=== PATIENT | male | born 1970 | race Caucasian/White ===

== ENCOUNTER → 2021-02-12 | Outpatient (REF) | payer BC ==
[2021-02-13 13:53] LABS: HEPATITIS B CORE ANTIBODY IGM NEGATIVE (NEGATIVE); HEPATITIS B SURFACE ANTIGEN NEGATIVE (NEGATIVE); HEPATITIS C VIRUS ABY INDEX 0.1 INDEX (<0.8)
== END ==
LOC: M LAB REF 12:13
PROVIDERS: ATTEND Nurse Practitioner Adult Health
DX: R74.01 Elevation of levels of liver transaminase levels (principal)

== ENCOUNTER → 2021-03-14 | Outpatient (CLI) | payer BC ==
[2021-03-14 11:25] LABS: HEMATOCRIT 51.1 % (42.0-52.0); HEMOGLOBIN 17.6 g/dl (13.5-17.5); MEAN CORPUSCULAR HEMOGLOBIN 31.4 pg (27.0-33.0); MEAN CORPUSCULAR HGB CONC 34.4 g/dl (32.0-36.5); MEAN CORPUSCULAR VOLUME 91.3 fl (80.0-96.0); PLATELET COUNT, AUTOMATED 317 10^3/uL (150-450); WHITE BLOOD COUNT 9.5 10^3/uL (4.0-10.0)
[2021-03-14 12:23] LABS: BLOOD UREA NITROGEN 16 MG/DL (7-18); CALCIUM LEVEL 10.1 MG/DL (8.5-10.1); CARBON DIOXIDE LEVEL 26 MEQ/L (21-32); CHLORIDE LEVEL 109 MEQ/L (98-107); CREATININE FOR GFR 1.07 MG/DL (0.70-1.30); GLOMERULAR FILTRATION RATE > 60.0 (>56); GLUCOSE, FASTING 107 MG/DL (70-100); POTASSIUM SERUM 4.5 MEQ/L (3.5-5.1); SODIUM LEVEL 142 MEQ/L (136-145)
[2021-03-14 14:18] LABS: HEMOGLOBIN A1c 5.4 %
== END ==
LOC: M LAB 10:58
PROVIDERS: ATTEND Internal Medicine Cardiovascular Disease
DX: Z13.1 Encounter for screening for diabetes mellitus (principal); I20.0 Unstable angina

== ENCOUNTER → 2021-05-06 | Outpatient (REF) | payer BC | LOC: M LAB REF 16:15 | PROVIDERS: ATTEND Nurse Practitioner Adult Health | DX: R74.01 Elevation of levels of liver transaminase levels (principal) ==

== ENCOUNTER → 2023-03-12 | Outpatient (CLI) | payer BC | LOC: M ADAMS 15:07 | PROVIDERS: ATTEND Nurse Practitioner Adult Health | DX: R05.9 Cough, unspecified (principal) ==

== ENCOUNTER 2023-04-04 07:57 | Emergency (ER) | payer BC ==
[~2023-04-04] VITALS: Ht 180.3 cm; Wt 109.0 kg
[2023-04-04 07:57] VITALS: TEMP 97.3
[2023-04-04] MEDS ORDERED: ATEN25TA PO (08:18)
[2023-04-04] MEDS ORDERED: SUCR1TAB56 (08:21)
[2023-04-04] MEDS ORDERED: ROSU5TAB5 (08:21)
[2023-04-04] MEDS ORDERED: MONT10TA97 (08:21)
[2023-04-04] MEDS ORDERED: ESOM40CA35 (08:21)
[2023-04-04] MEDS ORDERED: ROPI0.5T33 (08:21)
[2023-04-04] MEDS ORDERED: ALBU8.5H (08:21)
[2023-04-04] MEDS ORDERED: FLUTISP (08:21)
[2023-04-04 08:54] LABS: BASO # 0.1 10^3/uL (0.0-0.2); BASO % 0.7 % (0.0-1.0); EOS # 0.4 10^3/uL (0.0-0.5); EOS % 4.6 % (0.0-3.0); HEMATOCRIT 46.3 % (42.0-52.0); HEMOGLOBIN 16.1 g/dl (13.5-17.5); LYMPH # 2.1 10^3/uL (1.5-5.0); LYMPH % 23.9 % (24.0-44.0); MEAN CORPUSCULAR HEMOGLOBIN 31.7 pg (27.0-33.0); MEAN CORPUSCULAR HGB CONC 34.8 g/dl (32.0-36.5); MEAN CORPUSCULAR VOLUME 91.1 fl (80.0-96.0); MONO # 0.7 10^3/uL (0.0-0.8); MONO % 7.8 % (2.0-8.0); NEUTROPHILS # 5.5 10^3/uL (1.5-8.5); NEUTROPHILS % 62.4 % (36.0-66.0); PLATELET COUNT, AUTOMATED 269 10^3/uL (150-450); RED BLOOD COUNT 5.08 10^6/uL (4.30-6.10); WHITE BLOOD COUNT 8.8 10^3/uL (4.0-10.0)
[2023-04-04 09:09] LABS: INR 1.12; PROTHROMBIN TIME 14.1 SECONDS (12.5-14.5)
[2023-04-04 09:10] LABS: PARTIAL THROMBOPLASTIN TIME 25.7 SECONDS (24.8-34.2)
[2023-04-04 09:21] LABS: CPK CREATINE PHOSPHOKINASE 103 U/L (46-171)
[2023-04-04 09:24] LABS: ALKALINE PHOSPHATASE 117 U/L (46-116); ALT/SGPT 63 U/L (7.0-40); AST/SGOT 40 U/L (<34); BILIRUBIN,DIRECT 0.1 MG/DL (<0.4); BILIRUBIN,TOTAL 0.5 MG/DL (0.3-1.2); BLOOD UREA NITROGEN 13 MG/DL (9-23); CALCIUM LEVEL 9.2 MG/DL (8.5-10.1); CARBON DIOXIDE LEVEL 24 MMOL/L (20-31); CHLORIDE LEVEL 110 MMOL/L (98-107); CK-MB VALUE MASS < 1.0 NG/ML (<3.6); FREE T4 1.01 NG/DL (0.89-1.76); GLOMERULAR FILTRATION RATE > 60.0 (>56); GLUCOSE, FASTING 128 MG/DL (60-100); MB/CK RELATIVE INDEX 0.97 (< OR =4); POTASSIUM SERUM 4.4 MMOL/L (3.5-5.1); SODIUM LEVEL 141 MMOL/L (136-145); THYROID STIMULATING HORMONE 1.992 uIU/ML (0.55-4.78); TOTAL PROTEIN 6.7 G/DL (5.7-8.2)
[2023-04-04] MEDS ORDERED: PANTOPRAZOLE 40MG VIAL IV ONE (09:25)
[2023-04-04] MEDS ORDERED: amLODIPine 5 MG TAB PO ONE (09:25)
[2023-04-04] MEDS ORDERED: ASPIRIN 81MG CHEW TABLET PO ONE (09:25)
[2023-04-04] MEDS ORDERED: MAALOX 30 ML SUSP *UDC PO ONE (09:25)
[2023-04-04] MEDS ORDERED: ISOVUE-370 76% 100ML VIAL As Ordered ONE ×2 (09:44→10:09)
[2023-04-04 10:11] LABS: CK-MB VALUE MASS < 1.0 NG/ML (<3.6)
[2023-04-04 10:12] LABS: CPK CREATINE PHOSPHOKINASE 96 U/L (46-171); MB/CK RELATIVE INDEX 1.04 (< OR =4)
[2023-04-04 11:00] VITALS: BP 160/89; O2SAT 97
[2023-04-04 11:01] VITALS: BP 160/89
== END 2023-04-04 11:37 | disposition home or self-care (01) ==
LOC: M ED 07:57
DX: R07.9 Chest pain, unspecified (principal); E78.5 Hyperlipidemia, unspecified; I10 Essential (primary) hypertension; K21.9 Gastro-esophageal reflux disease without esophagitis; F17.200 Nicotine dependence, unspecified, uncomplicated; Z88.1 Allergy status to other antibiotic agents; Z79.52 Long term (current) use of systemic steroids; Z79.899 Other long term (current) drug therapy; Z79.810 Long term (current) use of selective estrogen receptor modulators (SERMs)
CPT/HCPCS: 71275; 80048; 80076; 82550; 82553; 84439; 84443; 84484; 85025; 85610; 85730; 93005; 93041; 94760; 96374; 99285; C9113; Q9967

== ENCOUNTER → 2023-04-15 | Outpatient (CLI) | payer BC ==
[~2023-04-15] MED LIST: ALBU8.5H; ATEN25TA PO; ESOM40CA35; FLUTISP; MONT10TA97; ROPI0.5T33; ROSU5TAB5; SUCR1TAB56
== END ==
LOC: M RAD 06:54
PROVIDERS: ATTEND Nurse Practitioner Adult Health
DX: K76.0 Fatty (change of) liver, not elsewhere classified (principal)

== ENCOUNTER → 2023-10-14 | Outpatient (CLI) | payer BC ==
[~2023-10-14] MED LIST changes: +ADVI200T PO; +AMLO1TAB24 PO; +BUSP1TAB PO; +CITA20TA6 PO; +E-Z-GAS II EFFERVESCENT PACKET (SODIUM BICARB./CITRIC ACID/SIMETHICONE) As Ordered ONE; +E-Z-HD 98% w/w 340GM SUSP BTL As Ordered ONE; +E-Z-PAQUE 96% w/w SUSP 176GM BTL As Ordered ONE; +ECOT81TA5 PO; -ESOM40CA35; +ESOM40CA35 PO; +FLUO-290 PO; -MONT10TA97; +MONT10TA97 PO; -ROPI0.5T33; +ROPI0.5T33 PO; +ROSU5TAB40 PO; -ROSU5TAB5; -SUCR1TAB56; +SUCR1TAB56 PO
== END ==
LOC: M RAD 09:25
PROVIDERS: ATTEND Surgery
DX: K21.9 Gastro-esophageal reflux disease without esophagitis (principal); R19.7 Diarrhea, unspecified

== ENCOUNTER 2023-11-26 07:18 | Day surgery (SDC) | payer BC ==
[~2023-11-26] VITALS: Ht 180.3 cm; Wt 102.9 kg
[~2023-11-26 07:18] MED LIST changes: -E-Z-GAS II EFFERVESCENT PACKET (SODIUM BICARB./CITRIC ACID/SIMETHICONE) As Ordered ONE; -E-Z-HD 98% w/w 340GM SUSP BTL As Ordered ONE; -E-Z-PAQUE 96% w/w SUSP 176GM BTL As Ordered ONE; +FAMO40TA3 PO; +LIDOCAINE 2% 100MG/5ML SDV (FOR ANES.) As Ordered ONE; +MECL-136 PO; +fentaNYL 100 MCG/2 ML INJECTION As Ordered ONE; +propofoL 500 MG/50 ML VIAL As Ordered ONE
[2023-11-26] MEDS: NS 1,000 ML IV ONE (07:40)
[2023-11-26 09:07] VITALS: BP 113/77; O2SAT 97
== END 2023-11-26 09:20 | disposition home or self-care (01) ==
LOC: M OPP 07:18
PROVIDERS: ATTEND Surgery
DX: K63.89 Other specified diseases of intestine (principal); K44.9 Diaphragmatic hernia without obstruction or gangrene; K31.89 Other diseases of stomach and duodenum; K29.80 Duodenitis without bleeding; Z79.02 Long term (current) use of antithrombotics/antiplatelets; Z79.1 Long term (current) use of non-steroidal anti-inflammatories (NSAID); Z79.51 Long term (current) use of inhaled steroids; Z79.82 Long term (current) use of aspirin; Z79.899 Other long term (current) drug therapy; Z88.1 Allergy status to other antibiotic agents
CPT/HCPCS: 43239; 45380; 88305; J3010

== ENCOUNTER 2023-12-05 10:18 | Emergency (ER) | payer BC ==
[~2023-12-05] VITALS: Ht 180.3 cm; Wt 104.3 kg
[~2023-12-05 10:18] MED LIST changes: -LIDOCAINE 2% 100MG/5ML SDV (FOR ANES.) As Ordered ONE; -fentaNYL 100 MCG/2 ML INJECTION As Ordered ONE; -propofoL 500 MG/50 ML VIAL As Ordered ONE
[2023-12-05] MEDS ORDERED: NIRM1TAB14 (10:30)
[2023-12-05 12:28] VITALS: BP 143/81; TEMP 98.3; O2SAT 99
== END 2023-12-05 12:57 | disposition home or self-care (01) ==
LOC: M ED 10:18
DX: R00.1 Bradycardia, unspecified (principal); F41.9 Anxiety disorder, unspecified; K21.9 Gastro-esophageal reflux disease without esophagitis; E78.5 Hyperlipidemia, unspecified; J45.909 Unspecified asthma, uncomplicated; I10 Essential (primary) hypertension; Z88.1 Allergy status to other antibiotic agents; Z79.52 Long term (current) use of systemic steroids; Z79.82 Long term (current) use of aspirin; Z79.899 Other long term (current) drug therapy

== ENCOUNTER 2023-12-09 13:25 | Emergency (ER) | payer BC ==
[~2023-12-09] VITALS: Ht 180.3 cm; Wt 103.6 kg
[~2023-12-09 13:25] MED LIST changes: +NIRM1TAB14
[2023-12-09 14:31] LABS: BASO % 0.4 % (0.0-1.0); EOS # 0.2 10^3/uL (0.0-0.5); EOS % 2.2 % (0.0-3.0); HEMATOCRIT 47.8 % (42.0-52.0); HEMOGLOBIN 16.6 g/dl (13.5-17.5); LYMPH # 1.9 10^3/uL (1.5-5.0); LYMPH % 21.6 % (24.0-44.0); MEAN CORPUSCULAR HEMOGLOBIN 31.4 pg (27.0-33.0); MEAN CORPUSCULAR HGB CONC 34.7 g/dl (32.0-36.5); MEAN CORPUSCULAR VOLUME 90.5 fl (80.0-96.0); MONO # 0.9 10^3/uL (0.0-0.8); NEUTROPHILS # 5.8 10^3/uL (1.5-8.5); NEUTROPHILS % 65.2 % (36.0-66.0); PLATELET COUNT, AUTOMATED 296 10^3/uL (150-450); RED BLOOD COUNT 5.28 10^6/uL (4.30-6.10); WHITE BLOOD COUNT 8.9 10^3/uL (4.0-10.0)
[2023-12-09 14:53] LABS: LIPASE 36 U/L (12-53)
[2023-12-09 14:54] LABS: CPK CREATINE PHOSPHOKINASE 65 U/L (46-171)
[2023-12-09 14:55] LABS: ALBUMIN 4.2 G/DL (3.2-5.2); ALKALINE PHOSPHATASE 112 U/L (46-116); ALT/SGPT 52 U/L (7.0-40); AST/SGOT 21 U/L (<34); BILIRUBIN,DIRECT 0.1 MG/DL (<0.4); BILIRUBIN,TOTAL 0.3 MG/DL (0.3-1.2); BLOOD UREA NITROGEN 17 MG/DL (9-23); CALCIUM LEVEL 9.7 MG/DL (8.5-10.1); CARBON DIOXIDE LEVEL 25 MMOL/L (20-31); CHLORIDE LEVEL 107 MMOL/L (98-107); CK-MB VALUE MASS < 1.0 NG/ML (<3.6); CREATININE FOR GFR 0.86 MG/DL (0.70-1.30); GLOMERULAR FILTRATION RATE > 60.0 (>56); GLUCOSE, FASTING 116 MG/DL (60-100); MB/CK RELATIVE INDEX 1.53 (< OR =4); POTASSIUM SERUM 4.1 MMOL/L (3.5-5.1); SODIUM LEVEL 139 MMOL/L (136-145); TOTAL PROTEIN 7.4 G/DL (5.7-8.2)
[2023-12-09 15:30] VITALS: BP 125/88
[2023-12-09 15:40] VITALS: TEMP 97.4; O2SAT 98
== END 2023-12-09 15:50 | disposition home or self-care (01) ==
LOC: M ED 13:25
DX: U07.1 COVID-19 (principal); R53.81 Other malaise; K21.9 Gastro-esophageal reflux disease without esophagitis; I10 Essential (primary) hypertension; Z88.1 Allergy status to other antibiotic agents; Z79.52 Long term (current) use of systemic steroids; Z79.82 Long term (current) use of aspirin; Z79.899 Other long term (current) drug therapy

== ENCOUNTER 2023-12-13 20:46 | Emergency (ER) | payer BC ==
[~2023-12-13] VITALS: Ht 180.3 cm; Wt 104.7 kg
[2023-12-13 21:40] LABS: BASO # 0.1 10^3/uL (0.0-0.2); BASO % 0.6 % (0.0-1.0); EOS # 0.4 10^3/uL (0.0-0.5); HEMATOCRIT 45.2 % (42.0-52.0); HEMOGLOBIN 16.2 g/dl (13.5-17.5); LYMPH # 4.4 10^3/uL (1.5-5.0); LYMPH % 35.7 % (24.0-44.0); MEAN CORPUSCULAR HEMOGLOBIN 31.9 pg (27.0-33.0); MEAN CORPUSCULAR HGB CONC 35.8 g/dl (32.0-36.5); MONO % 8.5 % (2.0-8.0); NEUTROPHILS # 6.3 10^3/uL (1.5-8.5); NEUTROPHILS % 51.6 % (36.0-66.0); PLATELET COUNT, AUTOMATED 314 10^3/uL (150-450); RED BLOOD COUNT 5.08 10^6/uL (4.30-6.10); WHITE BLOOD COUNT 12.2 10^3/uL (4.0-10.0)
[2023-12-13 21:52] LABS: CK-MB VALUE MASS < 1.0 NG/ML (<3.6)
[2023-12-13 21:54] LABS: ALBUMIN 3.9 G/DL (3.2-5.2); ALKALINE PHOSPHATASE 111 U/L (46-116); ALT/SGPT 45 U/L (7.0-40); AST/SGOT 18 U/L (<34); BILIRUBIN,DIRECT < 0.1 MG/DL (<0.4); BILIRUBIN,TOTAL 0.3 MG/DL (0.3-1.2); BLOOD UREA NITROGEN 13 MG/DL (9-23); CALCIUM LEVEL 9.1 MG/DL (8.5-10.1); CARBON DIOXIDE LEVEL 22 MMOL/L (20-31); CHLORIDE LEVEL 112 MMOL/L (98-107); CREATININE FOR GFR 0.85 MG/DL (0.70-1.30); GLOMERULAR FILTRATION RATE > 60.0 (>56); GLUCOSE, FASTING 130 MG/DL (60-100); MAGNESIUM LEVEL 1.8 MG/DL (1.8-2.4); SODIUM LEVEL 142 MMOL/L (136-145)
[2023-12-13 22:00] LABS: PROCALCITONIN 0.09 ng/ml
[2023-12-13 22:03] LABS: CPK CREATINE PHOSPHOKINASE 68 U/L (46-171); MB/CK RELATIVE INDEX 1.47 (< OR =4)
[2023-12-13] MEDS ORDERED: ISOVUE-370 76% 100ML VIAL As Ordered ONE (22:42)
[2023-12-13] MEDS: NS 1,000 ML IV ONE (22:57)
[2023-12-14 00:52] VITALS: BP 155/97; TEMP 96.6; O2SAT 100
[2023-12-14] MEDS ORDERED: DOXY100T27 PO (01:03)
[2023-12-14] MEDS ORDERED: ZITHTAB PO (01:03)
[2023-12-14] MEDS ORDERED: DELS1LIQ3 PO (01:03)
[2023-12-14] MEDS ORDERED: PSEU30TA87 PO (01:03)
[2023-12-14] MEDS ORDERED: PRED20TA PO (01:03)
[2023-12-14] MEDS ORDERED: BACI1CAP4 PO (01:06)
[2023-12-14] MEDS ORDERED: PROBCAP14 PO (01:06)
[2023-12-14] MEDS ORDERED: PROBCAP2 PO (01:06)
== END 2023-12-14 01:31 | disposition home or self-care (01) ==
LOC: M ED 20:46
DX: J20.9 Acute bronchitis, unspecified (principal); J01.00 Acute maxillary sinusitis, unspecified; J45.909 Unspecified asthma, uncomplicated; R51.9 Headache, unspecified; K21.9 Gastro-esophageal reflux disease without esophagitis; F41.9 Anxiety disorder, unspecified; G25.81 Restless legs syndrome; Z88.1 Allergy status to other antibiotic agents; Z79.52 Long term (current) use of systemic steroids; Z79.82 Long term (current) use of aspirin; Z79.899 Other long term (current) drug therapy; Z79.2 Long term (current) use of antibiotics
CPT/HCPCS: 36415; 71046; 71275; 80048; 80076; 82550; 82553; 83735; 84145; 84484; 85025; 87486; 87581; 87633; 87798; 93005; 99284; Q9967

== ENCOUNTER → 2024-01-26 | Outpatient (REF) | payer BC ==
[~2024-01-26] MED LIST changes: +BACI1CAP4 PO; +DELS1LIQ3 PO; +DOXY100T27 PO; +PRED20TA PO; +PROBCAP14 PO; +PROBCAP2 PO; +PSEU30TA87 PO; +ZITHTAB PO
== END ==
LOC: M LAB REF 16:48
PROVIDERS: ATTEND Nurse Practitioner Adult Health
DX: M79.606 Pain in leg, unspecified (principal)

== ENCOUNTER → 2024-02-11 | Outpatient (CLI) | payer BC ==
[~2024-02-11] MED LIST changes: -ROSU5TAB40 PO; +ROSU5TAB49 PO
== END ==
LOC: M PLAIMG 09:05
PROVIDERS: ATTEND Nurse Practitioner Adult Health
DX: R51.9 Headache, unspecified (principal)

== ENCOUNTER → 2024-02-13 | Outpatient (CLI) | payer BC | LOC: M EKG 12:53 | PROVIDERS: ATTEND Registered Nurse | DX: R00.2 Palpitations (principal) ==

== ENCOUNTER → 2024-02-17 | Outpatient (CLI) | payer BC | LOC: M PLAIMG 13:38 | PROVIDERS: ATTEND Otolaryngology | DX: J32.0 Chronic maxillary sinusitis (principal) ==

== ENCOUNTER → 2024-04-07 | Outpatient (REF) | payer BC ==
[2024-04-07 19:13] LABS: ALBUMIN 4.5 G/DL (3.2-5.2); BLOOD UREA NITROGEN 18 MG/DL (9-23); CALCIUM LEVEL 9.8 MG/DL (8.5-10.1); CARBON DIOXIDE LEVEL 26 MMOL/L (20-31); CHLORIDE LEVEL 105 MMOL/L (98-107); CREATININE FOR GFR 1.09 MG/DL (0.70-1.30); GLOMERULAR FILTRATION RATE > 60.0 (>56); GLUCOSE, FASTING 68 MG/DL (60-100); MAGNESIUM LEVEL 1.8 MG/DL (1.8-2.4); PHOSPHORUS LEVEL 3.8 MG/DL (2.5-4.9); POTASSIUM SERUM 4.4 MMOL/L (3.5-5.1); SODIUM LEVEL 141 MMOL/L (136-145)
== END ==
LOC: M LABDRWAD 17:15
PROVIDERS: ATTEND Registered Nurse
DX: I10 Essential (primary) hypertension (principal)

== ENCOUNTER 2024-05-16 09:21 | Day surgery (SDC) | payer BC ==
[~2024-05-16] VITALS: Ht 180.3 cm; Wt 103.6 kg
[~2024-05-16 09:21] MED LIST changes: -ALBU8.5H; +ALBU8.5H INH; +SPIR-10 PO; +VALS1TAB66 PO
[2024-05-16] MEDS ORDERED: HYDROmorphone HCL 2MG/ML 1ML VIAL As Ordered ONE (10:36)
[2024-05-16] MEDS ORDERED: fentaNYL 100 MCG/2 ML INJECTION As Ordered ONE (10:37)
[2024-05-16] MEDS ORDERED: MIDAZOLAM INJ 2MG/2ML VIAL As Ordered ONE (10:37)
[2024-05-16] MEDS ORDERED: ROCURONIUM BROMIDE 50MG/5ML VIAL As Ordered ONE (10:41)
[2024-05-16] MEDS ORDERED: LIDOCAINE 2% 100MG/5ML SDV (FOR ANES.) As Ordered ONE (10:41)
[2024-05-16] MEDS ORDERED: ONDANSETRON 4MG 2ML VIAL As Ordered ONE (10:41)
[2024-05-16] MEDS ORDERED: propofoL 200 MG/20 ML VIAL As Ordered ONE (10:41)
[2024-05-16] MEDS ORDERED: SUGAMMADEX SODIUM 500 MG/5 ML VIAL (BRIDION) As Ordered ONE (10:41)
[2024-05-16] MEDS ORDERED: ACETAMINOPHEN 1000MG/100ML IV BAG As Ordered ONE (10:41)
[2024-05-16] MEDS: LR 1,000 ML IV SCH (10:44)
[2024-05-16 11:31] LABS: INR 0.94; PARTIAL THROMBOPLASTIN TIME 26.6 SECONDS (24.8-34.2); PROTHROMBIN TIME 12.8 SECONDS (12.5-14.5)
[2024-05-16] MEDS: METHYLENE BLUE 0.5% (5MG/ML) 10 ML AMP (PROVAYBLUE) As Ordered ONE (12:06)
[2024-05-16] MEDS: EPINEPHrine 1MG/ML INJ 30ML MD-VIAL As Ordered ONE (12:06)
[2024-05-16] MEDS: LIDOCAINE W/EPINEPHRINE 1% 20ML VIAL As Ordered ONE (12:07)
[2024-05-16] MEDS ORDERED: fentaNYL 100 MCG/2 ML INJECTION IV PRN (13:20)
[2024-05-16] MEDS ORDERED: NS (Normal Saline) 0.9% 1,000 ML IV SCH (13:20)
[2024-05-16] MEDS: PHENYLEPHRINE REG/STR 0.5% NASAL SPRAY 15 ML As Ordered ONE (13:37)
[2024-05-16] MEDS: oxyCODONE 5MG TAB PO PRN (13:50)
[2024-05-16] MEDS: HYDROMORPHONE HCL 0.5 MG/ 0.5 ML SYRINGE IV PRN (13:50)
[2024-05-16] MEDS: ONDANSETRON 4MG 2ML VIAL IV PRN (14:11)
[2024-05-16 14:40] VITALS: BP 137/76; TEMP 97.2; O2SAT 94
== END 2024-05-16 14:49 | disposition home or self-care (01) ==
LOC: M SDC 09:21
PROVIDERS: ATTEND Otolaryngology
DX: J32.8 Other chronic sinusitis (principal); J31.0 Chronic rhinitis; J33.8 Other polyp of sinus; I10 Essential (primary) hypertension; E78.00 Pure hypercholesterolemia, unspecified; K21.9 Gastro-esophageal reflux disease without esophagitis; Z79.899 Other long term (current) drug therapy; Z79.82 Long term (current) use of aspirin; G25.81 Restless legs syndrome; F17.220 Nicotine dependence, chewing tobacco, uncomplicated; Z88.1 Allergy status to other antibiotic agents
CPT/HCPCS: 31255; 31267; 31296; 36415; 61782; 85610; 85730; C2625; J0131; J0171; J1100; J1171; J2250; J2405; J3010; Q9968

== ENCOUNTER → 2024-05-23 | Outpatient (REF) | payer BC | LOC: M LAB REF 16:09 | PROVIDERS: ATTEND Nurse Practitioner Adult Health | DX: R53.83 Other fatigue (principal); I10 Essential (primary) hypertension ==